=== PATIENT | female | born 1965 | race Caucasian/White ===

== ENCOUNTER 2021-12-10 05:34 | Outpatient (CLI) | payer BC, OTHER ==
[~2021-12-10] VITALS: Ht 162.6 cm; Wt 123.8 kg
[2021-12-10] MEDS ORDERED: LIRA0.6P3 SQ (12:31)
[2021-12-10] MEDS ORDERED: LISI10TA25 PO (12:31)
[2021-12-10] MEDS ORDERED: METF-397 PO (12:31)
[2021-12-10] MEDS ORDERED: ATOR80TA76 PO (12:31)
[2021-12-10] MEDS ORDERED: UBID100C44 PO (12:31)
[2021-12-10] MEDS ORDERED: INSU100I14 SQ (12:31)
[2021-12-10] MEDS ORDERED: INSU100V5 SQ (12:31)
[2021-12-10] MEDS ORDERED: VENL225T PO (12:31)
[2021-12-10] MEDS ORDERED: ASPI-999 PO (12:31)
[2021-12-10] MEDS ORDERED: GLIM2TAB4 PO (12:31)
[2021-12-10] MEDS ORDERED: MULT-974 PO (12:31)
== END 2021-12-10 14:05 | disposition home or self-care (01) ==
LOC: PREOP 05:34
PROVIDERS: ATTEND Surgery
DX: Z01.818 Encounter for other preprocedural examination (principal)